=== PATIENT | female | born 2000 | race Caucasian/White ===

== ENCOUNTER 2021-11-13 22:33 | Emergency (ER) | payer SELFPAY ==
[~2021-11-13] VITALS: Ht 160 cm; Wt 49.9 kg
== END 2021-11-13 23:21 | disposition home or self-care (01) ==
LOC: ED 22:33
DX: S60.445A External constriction of left ring finger, initial encounter (principal); W49.04XA Ring or other jewelry causing external constriction, initial encounter
CPT/HCPCS: 99283